=== PATIENT | female | born 1965 | race Caucasian/White ===

== ENCOUNTER 2017-03-03 20:06 | Emergency (ER) | payer OTHER ==
[~2017-03-03] VITALS: Ht 180.3 cm; Wt 68.0 kg
[~2017-03-03 20:06] MED LIST: 'XANAX1 MG PO; ACETAMINOPHEN-H1 TA2 PO; ALBUTEROL0.09 MG/A2 INH; AMBIEN10 MG PO; AMITRIPTYLINE25 MG PO; AMOXIL500 MG PO; ANAPROX DS550 MG PO; ATARAX,VISTARIL50 MG PO; ATIVAN1 MG PO; AUGMENTIN 875875 MG PO; BACTRIM DS 8001 TA1 PO; BENTYL10 MG PO; BENZTROPINE1 MG PO; CELEXA20 MG PO; CELEXA40 MG; CELEXA40 MG PO; CEPHALEXIN500 M1 PO; CHILDREN'S TYLE80 MG PO; CLARITIN10 MG PO; COGENTIN0.5 MG PO; COGENTIN1 MG PO; COGENTIN2 MG PO; DAYPRO600 M1 PO; FLONASE 0.05% 121 EA NAS; HYDROCODONE BIT1 T11 PO; KEFLEX500 MG PO; KETOROLAC10 MG PO; LITHIUM CARBON300 M1 PO; MOTRIN CHI100 MG/51 PO; NAPROSYN500 MG PO; NAPROXEN500 MG PO; OLANZAPINE20 MG PO; OMEPRAZOLE DR20 M1 PO; PERPHENAZINE4 MG PO; PREDNISONE10 MG PO; PRILOSEC40 MG PO; PROVENTIL0.09 MG/A1 INH; SEPTRA DS 800 M1 TAB PO; TRAMADOL HCL50 MG PO; TRAZODONE100 MG PO; TRILAFON4 MG PO; TYLENOL ES500 MG PO; ULTRAM50 MG PO; VALIUM10 MG PO; VICODIN 500 MG-1 TAB PO; XANAX1 MG PO; ZANTAC150 MG PO; ZITHROMAX Z PA250 MG PO; ZOLPIDEM10 M1 PO; ZYPREXA10 MG PO; ZYPREXA20 MG PO; [UNRECOGNIZED DRUG - OTHER]
[2017-03-03 20:26] VITALS: BP 122/77
[2017-03-03] MEDS ORDERED: NORCO 5-325 TA1 EACH PO (22:00)
== END 2017-03-03 22:07 | disposition home or self-care (01) ==
LOC: ED 20:06
DX: S92.902A Unspecified fracture of left foot, initial encounter for closed fracture (principal); F17.200 Nicotine dependence, unspecified, uncomplicated; Z88.6 Allergy status to analgesic agent; W10.9XXA Fall (on) (from) unspecified stairs and steps, initial encounter; Y93.89 Activity, other specified; Y92.9 Unspecified place or not applicable; Y99.9 Unspecified external cause status

== ENCOUNTER 2017-10-07 12:38 | Emergency (ER) | payer OTHER ==
[~2017-10-07] VITALS: Ht 180.3 cm; Wt 59.0 kg
[~2017-10-07 12:38] MED LIST changes: +NORCO 5-325 TA1 EACH PO
[2017-10-07] MEDS ORDERED: HYDROXYZINE PAM50 MG PO (12:45)
[2017-10-07] MEDS ORDERED: CITALOPRAM HYDR40 MG PO (12:46)
[2017-10-07] MEDS ORDERED: ARIPIPRAZOLE15 MG PO (12:46)
[2017-10-07] MEDS ORDERED: OLANZAPINE15 M2 PO (12:47)
[2017-10-07] MEDS ORDERED: BENZTROPINE MESY1 MG PO (12:47)
[2017-10-07] MEDS ORDERED: PREDNISONE10 MG PO (15:09)
[2017-10-07 15:21] VITALS: BP 130/72
== END 2017-10-07 15:16 | disposition home or self-care (01) ==
LOC: ED 12:38
DX: M79.671 Pain in right foot (principal); M79.672 Pain in left foot; R03.0 Elevated blood-pressure reading, without diagnosis of hypertension; F41.9 Anxiety disorder, unspecified; F32.9 Major depressive disorder, single episode, unspecified; K21.9 Gastro-esophageal reflux disease without esophagitis; F17.200 Nicotine dependence, unspecified, uncomplicated; F10.10 Alcohol abuse, uncomplicated; Z88.8 Allergy status to other drugs, medicaments and biological substances; Z98.51 Tubal ligation status; Z90.89 Acquired absence of other organs; Z79.899 Other long term (current) drug therapy

== ENCOUNTER 2017-10-15 10:03 | Emergency (ER) | payer OTHER ==
[~2017-10-15] VITALS: Ht 180.3 cm; Wt 61.2 kg
[~2017-10-15 10:03] MED LIST changes: +ARIPIPRAZOLE15 MG PO; +BENZTROPINE MESY1 MG PO; +CITALOPRAM HYDR40 MG PO; +HYDROXYZINE PAM50 MG PO; +OLANZAPINE15 M2 PO
[2017-10-15 13:30] VITALS: BP 125/80
[2017-10-15] MEDS ORDERED: Percocet 325 MG1 TAB PO (13:34)
== END 2017-10-15 14:39 | disposition home or self-care (01) ==
LOC: ED 10:03
DX: S52.501A Unspecified fracture of the lower end of right radius, initial encounter for closed fracture (principal); S42.401A Unspecified fracture of lower end of right humerus, initial encounter for closed fracture; F17.200 Nicotine dependence, unspecified, uncomplicated; F10.10 Alcohol abuse, uncomplicated; Z88.8 Allergy status to other drugs, medicaments and biological substances; Z79.899 Other long term (current) drug therapy; Z90.89 Acquired absence of other organs; Z98.51 Tubal ligation status; W01.0XXA Fall on same level from slipping, tripping and stumbling without subsequent striking against object, initial encounter; Y93.01 Activity, walking, marching and hiking; Y92.512 Supermarket, store or market as the place of occurrence of the external cause; Y99.8 Other external cause status

== ENCOUNTER → 2017-10-17 | Outpatient (CLI) | payer OTHER ==
[~2017-10-17] MED LIST changes: +Percocet 325 MG1 TAB PO
== END | disposition home or self-care (01) ==
LOC: CT 10:18
DX: S42.401A Unspecified fracture of lower end of right humerus, initial encounter for closed fracture (principal); X58.XXXA Exposure to other specified factors, initial encounter; Y93.89 Activity, other specified; Y92.89 Other specified places as the place of occurrence of the external cause; Y99.8 Other external cause status

== ENCOUNTER 2017-12-13 09:18 | Emergency (ER) | payer OTHER ==
[~2017-12-13] VITALS: Ht 177.8 cm; Wt 68.0 kg
[2017-12-13 09:59] LABS: BASO # 0.1 10*3/uL (0.0-0.1); BASO % 0.5 % (0.0-1.0); EOS # 0.1 10*3/uL (0.0-0.4); EOS % 1.4 % (1.0-4.0); HEMATOCRIT 44.7 % (37.0-47.0); HEMOGLOBIN 14.2 g/dl (12.0-16.0); LYMPH # 2.3 10*3/uL (1.3-4.4); LYMPH % 24.9 % (27.0-41.0); MEAN CELL VOLUME 84.8 fl (81.0-99.0); MEAN CORPUSCULAR HGB 26.9 pg (27.0-31.0); MEAN CORPUSCULAR HGB CONC 31.8 g/dl (33.0-37.0); MEAN PLATELET VOLUME 9.8 fl (9.6-12.3); MONO # 0.6 10*3/uL (0.1-1.0); MONO % 6.3 % (3.0-9.0); NEUT # 6.2 10*3/uL (2.3-7.9); NEUT % 66.6 % (47.0-73.0); PLATELET COUNT AUTOMATED 234 10*3/uL (130-400); RED BLOOD COUNT 5.27 10*6/uL (4.10-5.10); RED CELL DISTRI WIDTH 15.5 % (0-14.5); WHITE BLOOD COUNT 9.4 10*3/uL (4.8-10.8)
[2017-12-13 10:14] LABS: ALBUMIN 3.8 gm/dl (3.1-4.5); ALKALINE PHOSPHATASE 133 U/L (45-117); BUN 6 mg/dl (7-24); CHLORIDE 107 mmol/L (98-107); CREATININE 0.98 mg/dL (0.55-1.02); POTASSIUM 3.8 mmol/L (3.5-5.1); SGOT/AST 40 IU/L (3-35); SGPT/ALT 52 U/L (12-78); SODIUM 139 mmol/L (136-145); TOTAL PROTEIN 8.2 gm/dL (6.4-8.2)
[2017-12-13 11:45] VITALS: BP 121/72
== END 2017-12-13 11:45 | disposition home or self-care (01) ==
LOC: ED 09:18
PROVIDERS: Emergency Medicine
DX: M25.521 Pain in right elbow (principal); L98.499 Non-pressure chronic ulcer of skin of other sites with unspecified severity; F17.200 Nicotine dependence, unspecified, uncomplicated; K21.9 Gastro-esophageal reflux disease without esophagitis; Z98.890 Other specified postprocedural states; Z88.6 Allergy status to analgesic agent; Z98.51 Tubal ligation status; Z90.89 Acquired absence of other organs; Z88.8 Allergy status to other drugs, medicaments and biological substances; Z79.899 Other long term (current) drug therapy

== ENCOUNTER 2018-02-05 12:40 | Emergency (ER) | payer OTHER ==
[~2018-02-05] VITALS: Ht 177.8 cm; Wt 61.2 kg
[2018-02-05 12:44] VITALS: BP 113/73
== END 2018-02-05 13:37 | disposition home or self-care (01) ==
LOC: ED 12:40
DX: S90.31XA Contusion of right foot, initial encounter (principal); F17.200 Nicotine dependence, unspecified, uncomplicated; K21.9 Gastro-esophageal reflux disease without esophagitis; M81.0 Age-related osteoporosis without current pathological fracture; M19.90 Unspecified osteoarthritis, unspecified site; Z98.890 Other specified postprocedural states; Z79.899 Other long term (current) drug therapy; Z88.6 Allergy status to analgesic agent; Z88.8 Allergy status to other drugs, medicaments and biological substances; Z98.51 Tubal ligation status; Z90.89 Acquired absence of other organs; W22.8XXA Striking against or struck by other objects, initial encounter; Y93.89 Activity, other specified; Y92.89 Other specified places as the place of occurrence of the external cause; Y99.9 Unspecified external cause status

== ENCOUNTER 2018-03-25 12:51 | Emergency (ER) | payer OTHER ==
[~2018-03-25] VITALS: Wt 56.7 kg
[2018-03-25 12:52] VITALS: BP 102/66
[2018-03-25] MEDS ORDERED: VIBRAMYCIN100 MG PO (13:36)
[2018-03-25] MEDS ORDERED: DIFLUCAN150 MG PO (13:37)
== END 2018-03-25 13:42 | disposition home or self-care (01) ==
LOC: ED 12:51
DX: J40 Bronchitis, not specified as acute or chronic (principal); K21.9 Gastro-esophageal reflux disease without esophagitis; M19.90 Unspecified osteoarthritis, unspecified site; F17.200 Nicotine dependence, unspecified, uncomplicated; Z88.6 Allergy status to analgesic agent; Z88.8 Allergy status to other drugs, medicaments and biological substances; Z79.899 Other long term (current) drug therapy

== ENCOUNTER 2018-07-05 11:28 | Emergency (ER) | payer OTHER ==
[~2018-07-05] VITALS: Ht 177.8 cm; Wt 62.1 kg
[~2018-07-05 11:28] MED LIST changes: +DIFLUCAN150 MG PO; +VIBRAMYCIN100 MG PO
[2018-07-05 11:30] VITALS: BP 156/72
[2018-07-05] MEDS ORDERED: CEPHALEXIN500 M1 PO (14:14)
== END 2018-07-05 14:19 | disposition home or self-care (01) ==
LOC: ED 11:28
DX: S51.811A Laceration without foreign body of right forearm, initial encounter (principal); Z88.6 Allergy status to analgesic agent; Z88.8 Allergy status to other drugs, medicaments and biological substances; Z79.899 Other long term (current) drug therapy; W10.8XXA Fall (on) (from) other stairs and steps, initial encounter; Y93.89 Activity, other specified; Y92.89 Other specified places as the place of occurrence of the external cause; Y99.8 Other external cause status

== ENCOUNTER 2019-01-27 18:13 | Emergency (ER) | payer OTHER ==
[~2019-01-27] VITALS: Ht 177.8 cm; Wt 63.5 kg
[~2019-01-27 18:13] MED LIST changes: +ATIVAN0.5 MG PO; +B12,B-12,B 12500 MC1 PO; +DOXYCYCLINE100 M3 PO; +REMERON SOLTAB30 MG PO; +VISTARIL25 M2 PO
[2019-01-27 18:15] VITALS: BP 120/74
== END 2019-01-27 19:16 | disposition home or self-care (01) ==
LOC: ED 18:13
DX: S20.211A Contusion of right front wall of thorax, initial encounter (principal); J44.9 Chronic obstructive pulmonary disease, unspecified; K21.9 Gastro-esophageal reflux disease without esophagitis; M19.90 Unspecified osteoarthritis, unspecified site; Z79.899 Other long term (current) drug therapy; Z88.6 Allergy status to analgesic agent; Z88.8 Allergy status to other drugs, medicaments and biological substances; W50.0XXA Accidental hit or strike by another person, initial encounter; Y93.89 Activity, other specified; Y92.89 Other specified places as the place of occurrence of the external cause; Y99.8 Other external cause status

== ENCOUNTER 2019-02-02 19:58 | Emergency (ER) | payer OTHER ==
[~2019-02-02] VITALS: Ht 177.8 cm; Wt 65.3 kg
[2019-02-02 20:01] VITALS: BP 156/84
[2019-02-02] MEDS ORDERED: ULTRAM50 MG PO (22:18)
== END 2019-02-02 22:40 | disposition home or self-care (01) ==
LOC: ED 19:58
DX: S70.02XA Contusion of left hip, initial encounter (principal); S20.211A Contusion of right front wall of thorax, initial encounter; J44.9 Chronic obstructive pulmonary disease, unspecified; K21.9 Gastro-esophageal reflux disease without esophagitis; F17.200 Nicotine dependence, unspecified, uncomplicated; Z88.8 Allergy status to other drugs, medicaments and biological substances; Z79.2 Long term (current) use of antibiotics; Z79.899 Other long term (current) drug therapy; W03.XXXA Other fall on same level due to collision with another person, initial encounter; Y93.89 Activity, other specified; Y92.89 Other specified places as the place of occurrence of the external cause; Y99.8 Other external cause status

== ENCOUNTER → 2019-08-13 | Outpatient (CLI) | payer OTHER | END | disposition home or self-care (01) | LOC: CT 10:00 | DX: M19.071 Primary osteoarthritis, right ankle and foot (principal) ==

== ENCOUNTER 2020-10-01 14:09 | Emergency (ER) | payer OTHER ==
[~2020-10-01] VITALS: Wt 68.0 kg
[2020-10-01 15:30] VITALS: BP 138/77
[2020-10-01] MEDS ORDERED: NORCO 5-325 TA1 EACH PO (15:45)
[2020-10-06] MEDS ORDERED: NORCO 5-325 TA1 EACH PO (10:12)
== END 2020-10-01 16:03 | disposition home or self-care (01) ==
LOC: ED 14:09
DX: S52.91XA Unspecified fracture of right forearm, initial encounter for closed fracture (principal); F41.9 Anxiety disorder, unspecified; J44.9 Chronic obstructive pulmonary disease, unspecified; F32.9 Major depressive disorder, single episode, unspecified; Z88.8 Allergy status to other drugs, medicaments and biological substances; Z79.899 Other long term (current) drug therapy; X58.XXXA Exposure to other specified factors, initial encounter; Y93.89 Activity, other specified; Y92.89 Other specified places as the place of occurrence of the external cause; Y99.8 Other external cause status

== ENCOUNTER → 2020-10-06 | Day surgery (SDC) | payer OTHER ==
[2020-10-05 11:06] LABS: BASO % 0.5 % (0.0-1.0); EOS # 0.1 10*3/uL (0.0-0.4); EOS % 1.8 % (1.0-4.0); HEMATOCRIT 44.4 % (37.0-47.0); LYMPH # 2.1 10*3/uL (1.3-4.4); LYMPH % 26.9 % (27.0-41.0); MEAN CELL VOLUME 89.3 fl (81.0-99.0); MEAN CORPUSCULAR HGB 28.2 pg (27.0-31.0); MEAN CORPUSCULAR HGB CONC 31.5 g/dl (33.0-37.0); MONO # 0.6 10*3/uL (0.1-1.0); MONO % 8.2 % (3.0-9.0); NEUT # 4.8 10*3/uL (2.3-7.9); NEUT % 62.2 % (47.0-73.0); PLATELET COUNT AUTOMATED 180 10*3/uL (130-400); RED BLOOD COUNT 4.97 10*6/uL (4.10-5.10); RED CELL DISTRI WIDTH 13.3 % (0-14.5); WHITE BLOOD COUNT 7.8 10*3/uL (4.8-10.8)
[~2020-10-06] VITALS: Ht 177.8 cm; Wt 68.0 kg
[2020-10-06 06:56] VITALS: BP 124/80
[2020-10-06 10:10] VITALS: BP 121/72
[2020-10-06 10:25] VITALS: BP 126/70
[2020-10-06 10:40] VITALS: BP 113/69
[2020-10-06 10:55] VITALS: BP 111/74
[2020-10-06 11:08] VITALS: BP 121/67
== END ==
LOC: SDC 10-05 10:15
PROVIDERS: ATTEND Orthopaedic Surgery
DX: S52.251A Displaced comminuted fracture of shaft of ulna, right arm, initial encounter for closed fracture (principal); S52.591A Other fractures of lower end of right radius, initial encounter for closed fracture; F31.9 Bipolar disorder, unspecified; M19.90 Unspecified osteoarthritis, unspecified site; J43.9 Emphysema, unspecified; F17.210 Nicotine dependence, cigarettes, uncomplicated; X58.XXXA Exposure to other specified factors, initial encounter; Y93.89 Activity, other specified; Y92.89 Other specified places as the place of occurrence of the external cause; Y99.8 Other external cause status; Z98.51 Tubal ligation status

== ENCOUNTER → 2020-10-20 | Outpatient (CLI) | payer OTHER | END | disposition home or self-care (01) | LOC: ORTHO 02:57 | PROVIDERS: ATTEND Orthopaedic Surgery | DX: S52.301A Unspecified fracture of shaft of right radius, initial encounter for closed fracture (principal); S52.251A Displaced comminuted fracture of shaft of ulna, right arm, initial encounter for closed fracture; X58.XXXA Exposure to other specified factors, initial encounter; Y93.89 Activity, other specified; Y92.89 Other specified places as the place of occurrence of the external cause; Y99.8 Other external cause status ==

== ENCOUNTER 2021-02-27 23:29 | Emergency (ER) | payer OTHER ==
[~2021-02-27] VITALS: Ht 177.8 cm; Wt 65.8 kg
[2021-02-27 23:39] VITALS: BP 132/75
== END 2021-02-28 00:54 | disposition home or self-care (01) ==
LOC: ED 23:29
DX: S90.32XA Contusion of left foot, initial encounter (principal); F17.200 Nicotine dependence, unspecified, uncomplicated; Z88.8 Allergy status to other drugs, medicaments and biological substances; Z79.899 Other long term (current) drug therapy; Z98.890 Other specified postprocedural states; Z90.89 Acquired absence of other organs; Z98.51 Tubal ligation status; W20.8XXA Other cause of strike by thrown, projected or falling object, initial encounter; Y93.89 Activity, other specified; Y92.89 Other specified places as the place of occurrence of the external cause; Y99.8 Other external cause status

== ENCOUNTER → 2021-03-24 | Outpatient (CLI) | payer OTHER | END | disposition home or self-care (01) | LOC: RAD 08:32 | PROVIDERS: ATTEND Orthopaedic Surgery | DX: S92.912A Unspecified fracture of left toe(s), initial encounter for closed fracture (principal); M61.572 Other ossification of muscle, left ankle and foot; S52.251D Displaced comminuted fracture of shaft of ulna, right arm, subsequent encounter for closed fracture with routine healing; X58.XXXA Exposure to other specified factors, initial encounter; Y93.89 Activity, other specified; Y92.89 Other specified places as the place of occurrence of the external cause; Y99.8 Other external cause status; X58.XXXD Exposure to other specified factors, subsequent encounter ==

== ENCOUNTER → 2021-05-05 | Outpatient (CLI) | payer OTHER | END | disposition home or self-care (01) | LOC: RAD 04-13 09:00 | PROVIDERS: ATTEND Orthopaedic Surgery | DX: M81.0 Age-related osteoporosis without current pathological fracture (principal); M85.89 Other specified disorders of bone density and structure, multiple sites ==

== ENCOUNTER 2021-10-16 14:56 | Emergency (ER) | payer OTHER ==
[~2021-10-16] VITALS: Wt 59.0 kg
[2021-10-16 15:11] VITALS: BP 129/75
== END 2021-10-16 16:15 | disposition home or self-care (01) ==
LOC: ED 14:56
DX: T18.128A Food in esophagus causing other injury, initial encounter (principal); F17.200 Nicotine dependence, unspecified, uncomplicated; Z88.6 Allergy status to analgesic agent; Z88.8 Allergy status to other drugs, medicaments and biological substances; Z79.899 Other long term (current) drug therapy; Y92.89 Other specified places as the place of occurrence of the external cause

== ENCOUNTER 2022-05-08 20:55 | Emergency (ER) | payer OTHER ==
[~2022-05-08] VITALS: Ht 177.8 cm; Wt 61.2 kg
[2022-05-08 21:02] VITALS: BP 143/67
[2022-05-10] MEDS ORDERED: ZYPREXA15 M1 PO (12:15)
[2022-05-10] MEDS ORDERED: VITAMIN D325 MCG PO (12:16)
== END 2022-05-09 00:51 | disposition home or self-care (01) ==
LOC: ED 20:55
DX: T18.128A Food in esophagus causing other injury, initial encounter (principal); F17.200 Nicotine dependence, unspecified, uncomplicated; Z98.51 Tubal ligation status; Z90.89 Acquired absence of other organs; Z79.899 Other long term (current) drug therapy; Z88.6 Allergy status to analgesic agent; Y92.89 Other specified places as the place of occurrence of the external cause

== ENCOUNTER → 2022-05-16 | Day surgery (SDC) | payer OTHER ==
[~2022-05-16] VITALS: Ht 177.8 cm; Wt 60.8 kg
[~2022-05-16] MED LIST changes: +CARAFATE1 G1 PO; +PROTONIX40 MG PO; +VITAMIN D325 MCG PO; +ZYPREXA15 M1 PO
[2022-05-16 06:50] VITALS: BP 133/70
[2022-05-16 07:48] VITALS: BP 90/55
[2022-05-16 08:03] VITALS: BP 94/63
[2022-05-16 08:18] VITALS: BP 124/61
[2022-05-16 08:37] VITALS: BP 90/55
== END | disposition home or self-care (01) ==
LOC: SDC 05-02 11:00
PROVIDERS: ATTEND Surgery
DX: Z12.11 Encounter for screening for malignant neoplasm of colon (principal); D12.2 Benign neoplasm of ascending colon; K29.50 Unspecified chronic gastritis without bleeding; K44.9 Diaphragmatic hernia without obstruction or gangrene; K21.9 Gastro-esophageal reflux disease without esophagitis; J43.9 Emphysema, unspecified; F31.9 Bipolar disorder, unspecified; M19.90 Unspecified osteoarthritis, unspecified site; E78.00 Pure hypercholesterolemia, unspecified; G43.909 Migraine, unspecified, not intractable, without status migrainosus; F17.210 Nicotine dependence, cigarettes, uncomplicated; Z88.8 Allergy status to other drugs, medicaments and biological substances; Z79.899 Other long term (current) drug therapy

== ENCOUNTER → 2023-01-26 | Outpatient (CLI) | payer OTHER | END | disposition home or self-care (01) | LOC: RAD 14:26 | PROVIDERS: ATTEND Nurse Practitioner | DX: M47.816 Spondylosis without myelopathy or radiculopathy, lumbar region (principal) ==

== ENCOUNTER 2024-06-20 12:23 | Emergency (ER) | payer OTHER ==
[~2024-06-20] VITALS: Ht 175.2 cm; Wt 59.0 kg
[2024-06-20 12:35] VITALS: BP 108/74
[2024-06-20 12:51] LABS: BASO # 0.1 10*3/uL (0.0-0.1); BASO % 0.9 % (0.0-1.0); EOS # 0.2 10*3/uL (0.0-0.4); HEMATOCRIT 43.7 % (37.0-47.0); LYMPH # 1.8 10*3/uL (1.3-4.4); LYMPH % 31.2 % (27.0-41.0); MEAN CELL VOLUME 82.6 fl (81.0-99.0); MEAN CORPUSCULAR HGB CONC 32.7 g/dl (33.0-37.0); MEAN PLATELET VOLUME 10.2 fl (9.6-12.3); MONO # 0.7 10*3/uL (0.1-1.0); MONO % 11.3 % (3.0-9.0); NEUT # 3.1 10*3/uL (2.3-7.9); NEUT % 53.3 % (47.0-73.0); PLATELET COUNT AUTOMATED 193 10*3/uL (130-400); RED BLOOD COUNT 5.29 10*6/uL (4.10-5.10); RED CELL DISTRI WIDTH 14.8 % (0-14.5); WHITE BLOOD COUNT 5.7 10*3/uL (4.8-10.8)
[2024-06-20 13:05] LABS: ACT PARTIAL THROMBO TIME 24.5 SECONDS (20.0-32.1)
[2024-06-20 13:16] LABS: ALKALINE PHOSPHATASE 126 U/L (46-116); BUN 9 mg/dl (9-23); CHLORIDE 109 mmol/L (98-107); POTASSIUM 4.2 mmol/L (3.4-5.1); SGPT/ALT 91 U/L (5-49); TOTAL PROTEIN 7.5 gm/dL (6.0-8.0)
[2024-06-20] MEDS ORDERED: ZITHROMAX250 MG PO (14:11)
[2024-06-21 08:11] LABS: HBSAG Negative (Negative); HEP B CORE AB, IGM Negative (Negative)
== END 2024-06-20 14:39 | disposition home or self-care (01) ==
LOC: ED 12:23
PROVIDERS: Emergency Medicine; Nurse Practitioner
DX: R07.89 Other chest pain (principal); R74.01 Elevation of levels of liver transaminase levels; J98.11 Atelectasis; J44.9 Chronic obstructive pulmonary disease, unspecified; I10 Essential (primary) hypertension; K21.9 Gastro-esophageal reflux disease without esophagitis; M19.90 Unspecified osteoarthritis, unspecified site; F31.9 Bipolar disorder, unspecified; Z88.8 Allergy status to other drugs, medicaments and biological substances; Z88.6 Allergy status to analgesic agent; Z90.89 Acquired absence of other organs; Z98.51 Tubal ligation status; Z98.890 Other specified postprocedural states; Z72.0 Tobacco use

== ENCOUNTER → 2025-02-19 | Outpatient (CLI) | payer OTHER ==
[~2025-02-19] MED LIST changes: +IOHEXOL 300 MG/ML 100 ML VIAL IV ONE; +IOHEXOL 300 MG/ML 100 ML VIAL ONE; +ZITHROMAX250 MG PO
== END | disposition home or self-care (01) ==
LOC: CT 02-11 09:00
PROVIDERS: ATTEND Nurse Practitioner
DX: K80.20 Calculus of gallbladder without cholecystitis without obstruction (principal); K76.0 Fatty (change of) liver, not elsewhere classified; K43.9 Ventral hernia without obstruction or gangrene; N28.1 Cyst of kidney, acquired

== ENCOUNTER → 2025-03-10 | Outpatient (CLI) | payer OTHER ==
[~2025-03-10] MED LIST changes: +GADOTERATE MEGLUMINE 7.5 MMOL/15 ML VIAL IV ONE; -IOHEXOL 300 MG/ML 100 ML VIAL IV ONE; -IOHEXOL 300 MG/ML 100 ML VIAL ONE; +SODIUM CHLORIDE 0.9% 50 ML IV ONE
== END | disposition home or self-care (01) ==
LOC: MRI 10:00
PROVIDERS: ATTEND Nurse Practitioner
DX: N28.1 Cyst of kidney, acquired (principal); R16.0 Hepatomegaly, not elsewhere classified; K76.0 Fatty (change of) liver, not elsewhere classified; K80.20 Calculus of gallbladder without cholecystitis without obstruction; N28.9 Disorder of kidney and ureter, unspecified

== ENCOUNTER 2025-04-01 10:35 | Emergency (ER) | payer OTHER ==
[~2025-04-01] VITALS: Ht 180.3 cm; Wt 124.7 kg
[~2025-04-01 10:35] MED LIST changes: -GADOTERATE MEGLUMINE 7.5 MMOL/15 ML VIAL IV ONE; -SODIUM CHLORIDE 0.9% 50 ML IV ONE
[2025-04-01 11:15] VITALS: BP 140/86
[2025-04-01 12:02] LABS: BASO # 0.1 10*3/uL (0.0-0.1); BASO % 1.2 % (0.0-1.0); EOS # 0.1 10*3/uL (0.0-0.4); EOS % 1.2 % (1.0-4.0); MEAN CELL VOLUME 84.5 fl (81.0-99.0); MEAN CORPUSCULAR HGB 26.6 pg (27.0-31.0); MEAN PLATELET VOLUME 9.9 fl (9.6-12.3); MONO # 0.7 10*3/uL (0.1-1.0); MONO % 13.0 % (3.0-9.0); NEUT # 2.9 10*3/uL (2.3-7.9); NEUT % 58.7 % (47.0-73.0); NUCLEATED RED BLOOD CELL 0.0 % (0.0-0.0); NUCLEATED RED BLOOD CELL 0.0 10*3/uL (0.0-0.0); PLATELET COUNT AUTOMATED 173 10*3/uL (130-400); RED CELL DISTRI WIDTH 16.1 % (0-14.5)
[2025-04-01 12:27] LABS: BUN 6 mg/dl (9-23); SGPT/ALT 160 U/L (5-49)
== END 2025-04-01 13:05 | disposition home or self-care (01) ==
LOC: ED 10:35
PROVIDERS: Nurse Practitioner Family
DX: R15.9 Full incontinence of feces (principal); R74.01 Elevation of levels of liver transaminase levels; F31.9 Bipolar disorder, unspecified; F17.200 Nicotine dependence, unspecified, uncomplicated; Z79.899 Other long term (current) drug therapy; Z88.6 Allergy status to analgesic agent; Z88.8 Allergy status to other drugs, medicaments and biological substances; Z90.89 Acquired absence of other organs; Z98.51 Tubal ligation status; Z98.890 Other specified postprocedural states

== ENCOUNTER 2025-05-15 13:12 | Emergency (ER) | payer OTHER ==
[~2025-05-15] VITALS: Ht 165.1 cm; Wt 70.8 kg
[2025-05-15 13:18] VITALS: BP 124/72
[2025-05-15] MEDS ORDERED: Lidocaine Hydrochloride 2% 10 ML AMP SC ONE (13:25)
[2025-05-15] MEDS ORDERED: AMOX-CLAV 875-1 EACH PO (13:47)
[2025-05-15] MEDS ORDERED: Acetaminophen/Oxycodone 5 MG/325 MG TABLET PO ONE (13:50)
== END 2025-05-15 13:58 | disposition home or self-care (01) ==
LOC: ED 13:12
DX: L02.01 Cutaneous abscess of face (principal); F32.A Depression, unspecified; F41.9 Anxiety disorder, unspecified; F20.9 Schizophrenia, unspecified; Z88.8 Allergy status to other drugs, medicaments and biological substances; Z79.899 Other long term (current) drug therapy

== ENCOUNTER → 2025-08-13 | Outpatient (CLI) | payer OTHER ==
[~2025-08-13] MED LIST changes: +AMOX-CLAV 875-1 EACH PO
[2025-08-13 11:38] LABS: BASO # 0.1 10*3/uL (0.0-0.1); BASO % 1.1 % (0.0-1.0); EOS # 0.1 10*3/uL (0.0-0.4); EOS % 2.1 % (1.0-4.0); MEAN CELL VOLUME 84.6 fl (81.0-99.0); MEAN CORPUSCULAR HGB 27.2 pg (27.0-31.0); MEAN PLATELET VOLUME 10.9 fl (9.6-12.3); MONO # 0.7 10*3/uL (0.1-1.0); MONO % 10.6 % (3.0-9.0); NEUT # 3.5 10*3/uL (2.3-7.9); NEUT % 57.5 % (47.0-73.0); NUCLEATED RED BLOOD CELL 0.0 % (0.0-0.0); NUCLEATED RED BLOOD CELL 0.0 10*3/uL (0.0-0.0); PLATELET COUNT AUTOMATED 173 10*3/uL (130-400); RED CELL DISTRI WIDTH 15.1 % (0-14.5)
[2025-08-13 12:00] LABS: BUN 10 mg/dl (9-23); GAMMA GLUTAMYL TRANSFERASE 204 U/L (0-38); LDL CHOLESTEROL 76 mg/dL (9-159); SGPT/ALT 172 U/L (5-49)
[2025-08-13 12:48] LABS: VITAMIN D, 25-HYDROXY 55.3 ng/mL (30-100)
== END | disposition home or self-care (01) ==
LOC: LAB 11:07
PROVIDERS: ATTEND Psychiatry & Neurology Neurology
DX: F20.9 Schizophrenia, unspecified (principal); Z51.81 Encounter for therapeutic drug level monitoring